=== PATIENT | female | born 1975 | race Caucasian/White ===

== ENCOUNTER 2016-10-16 14:39 | Inpatient (IN) | payer OTHER ==
[~2016-10-16] VITALS: Ht 168.9 cm; Wt 88.0 kg
[2016-10-21] MEDS: OXYTOCIN 30U/ 0.9% NaCL 500ML 500 ML IV SCH ×4 (10:49→23:23)
[2016-10-21] MEDS: LACTATED RINGERS 1,000 ML IV SCH ×5 (10:54→23:23)
[2016-10-21] MEDS ORDERED: EPHEDRINE 50 MG/ML, 1ML IVPush PRN (11:00)
[2016-10-21] MEDS ORDERED: LABETALOL 5MG/ML, 20ML IV PRN (11:00)
[2016-10-21] MEDS ORDERED: HYDROmorphone 1 MG/ML, 1ML IV PRN (11:00)
[2016-10-21] MEDS ORDERED: PROMETHAZINE 25 MG/ML, 1ML IV PRN (11:00)
[2016-10-21] MEDS ORDERED: LACTATED RINGERS 1,000 ML IVBOLUS ONE (11:00)
[2016-10-21] MEDS ORDERED: METOCLOPRAMIDE 5 MG/ML, 2ML IV ONE (11:00)
[2016-10-21] MEDS ORDERED: OXYcodone 5 MG/5 ML ORAL.SOL UDC PO PRN (11:00)
[2016-10-21] MEDS ORDERED: MEPERIDINE/PF 25MG/0.5ML IVPush PRN (11:00)
[2016-10-21] MEDS ORDERED: ONDANSETRON 2MG/ML, 2ML IVPush PRN (11:00)
[2016-10-21] MEDS ORDERED: HYDROcodone/APAP 7.5-325MG/15ML UDC PO PRN (11:00)
[2016-10-21] MEDS ORDERED: ALBUTEROL SULFATE 2.5 MG/3 ML NPPB PRN (11:00)
[2016-10-21] MEDS ORDERED: hydrALAzine 20 MG/ML, 1ML IV PRN (11:00)
[2016-10-21] MEDS ORDERED: SODIUM CITRATE/CITRIC ACID 30 ML UDC PO ONE (11:00)
[2016-10-21] MEDS ORDERED: MIDAZOLAM 1 MG/ML, 2ML IV PRN (11:00)
[2016-10-21] MEDS ORDERED: FENTANYL PF 100 MCG/2ML IV PRN (11:00)
[2016-10-21] MEDS: PLEASE ENTER HEIGHT AND WEIGHT MC SCH ×2 (11:30→19:30)
[2016-10-21] MEDS ORDERED: SODIUM CITRATE/CITRIC ACID 30 ML UDC ONE ×2 (11:42→12:10)
[2016-10-21] MEDS ORDERED: OXYTOCIN 30U/ 0.9% NaCL 500ML 500 ML ONE (11:42)
[2016-10-21] MEDS ORDERED: MISOPROSTOL 200 MCG TABLET ONE (11:42)
[2016-10-21] MEDS ORDERED: METOCLOPRAMIDE 5 MG/ML, 2ML ONE ×2 (11:42→12:10)
[2016-10-21 12:06] LABS: ASPARTATE AMINO TRANSFERASE 46 U/L (15-37); BLOOD UREA NITROGEN 13 mg/dL (7-18)
[2016-10-21] MEDS ORDERED: FENTANYL PF 100 MCG/2ML ONE (12:07)
[2016-10-21] MEDS ORDERED: OXYTOCIN 10 UNITS/ML, 1ML ONE (12:10)
[2016-10-21] MEDS ORDERED: KETOROLAC 30 MG/1 ML ONE (12:10)
[2016-10-21] MEDS ORDERED: DEXAMETHASONE 4 MG/ML, 1ML ONE (12:10)
[2016-10-21] MEDS ORDERED: ONDANSETRON 2MG/ML, 2ML ONE (12:10)
[2016-10-21] MEDS ORDERED: CEFAZOLIN 1,000 MG ONE (12:10)
[2016-10-21] MEDS ORDERED: NEWBORN KIT ONE (12:12)
[2016-10-21] MEDS ORDERED: MAGNESIUM SULFATE PMX 4GM/100M 100 ML IV ONE ×3 (13:30→14:00)
[2016-10-21] MEDS ORDERED: MISOPROSTOL 200 MCG TABLET PR PRN (13:30)
[2016-10-21] MEDS ORDERED: ACETAMINOPHEN 325 MG TABLET PO PRN (13:30)
[2016-10-21] MEDS ORDERED: ONDANSETRON 2MG/ML, 2ML IV PRN (13:30)
[2016-10-21] MEDS ORDERED: morphine SULFATE 10 MG/ML, 1ML IVPush PRN (13:30)
[2016-10-21] MEDS ORDERED: CARBOPROST TROMETHAMINE 250 MCG/ML, 1ML IM PRN (13:30)
[2016-10-21] MEDS ORDERED: IBUPROFEN 600 MG TABLET PO PRN (13:30)
[2016-10-21] MEDS ORDERED: MAGNESIUM SULFATE PMX 4GM/100M 100 ML ONE (13:32)
[2016-10-21] MEDS ORDERED: MAGNESIUM SULF. PMX 20GM/500ML 500 ML IV ONE ×2 (13:33→23:46)
[2016-10-21] MEDS ORDERED: MAGNESIUM SULFATE PMX 4GM/100M 100 ML IV SCH (13:36)
[2016-10-21] MEDS: MAGNESIUM SULF. PMX 20GM/500ML 500 ML IV PRN ×2 (14:16→23:50)
[2016-10-21] MEDS ORDERED: morphine SULFATE 10 MG/ML, 1ML ONE ×2 (15:15→23:40)
[2016-10-21] MEDS: morphine SULFATE 10 MG/ML, 1ML IVPush PRN ×2 (15:17→15:28)
[2016-10-21] MEDS ORDERED: OXYcodone/APAP 5/325MG TABLET ONE ×2 (16:35→20:10)
[2016-10-21] MEDS: OXYcodone/APAP 5/325MG TABLET PO PRN ×2 (16:39→20:12)
[2016-10-21 19:25] VITALS: BP 141/77
[2016-10-21 22:35] LABS: ASPARTATE AMINO TRANSFERASE 46 U/L (15-37); BLOOD UREA NITROGEN 11 mg/dL (7-18)
[2016-10-21 22:49] LABS: DIFF TOTAL CELLS COUNTED 100 CELL DIFF
[2016-10-21 22:59] LABS: ANISOCYTOSIS 1+; VERIFY COUNTS? YES
[2016-10-21 23:01] LABS: POLYCHROMASIA 1+
[2016-10-21 23:02] LABS: LARGE PLATELETS 1+
[2016-10-22] MEDS: LACTATED RINGERS 1,000 ML IV SCH ×8 (02:49→21:23)
[2016-10-22] MEDS: PLEASE ENTER HEIGHT AND WEIGHT MC SCH (03:30)
[2016-10-22] MEDS ORDERED: OXYcodone/APAP 5/325MG TABLET ONE ×2 (05:11→11:31)
[2016-10-22] MEDS: OXYcodone/APAP 5/325MG TABLET PO PRN ×4 (05:13→21:06)
[2016-10-22 05:41] LABS: ASPARTATE AMINO TRANSFERASE 38 U/L (15-37); BLOOD UREA NITROGEN 12 mg/dL (7-18)
[2016-10-22 06:10] LABS: DIFF TOTAL CELLS COUNTED 100 CELL DIFF
[2016-10-22] MEDS: ENOXAPARIN 40 MG/0.4 ML SQ SCH (06:10)
[2016-10-22 06:12] LABS: VERIFY COUNTS? YES
[2016-10-22 06:13] LABS: ANISOCYTOSIS 1+; LARGE PLATELETS 1+; POLYCHROMASIA 1+
[2016-10-22] MEDS: OXYTOCIN 30U/ 0.9% NaCL 500ML 500 ML IV SCH ×3 (06:49→19:23)
[2016-10-22 08:10] VITALS: BP 150/78
[2016-10-22] MEDS: PRENATAL VIT/IRON/FA 1 EACH TABLET PO SCH (09:00)
[2016-10-22] MEDS: MAGNESIUM SULF. PMX 20GM/500ML 500 ML IV PRN (10:09)
[2016-10-22 12:56] VITALS: BP 125/74
[2016-10-22] MEDS: morphine SULFATE 10 MG/ML, 1ML IVPush PRN ×3 (13:56→15:52)
[2016-10-22 18:00] VITALS: BP 128/72
[2016-10-22] MEDS: SIMETHICONE 80 MG CHEW TAB PO PRN (21:07)
[2016-10-22 23:44] VITALS: BP 114/61
[2016-10-23] MEDS: OXYcodone/APAP 5/325MG TABLET PO PRN ×6 (01:00→22:20)
[2016-10-23] MEDS: SIMETHICONE 80 MG CHEW TAB PO PRN ×4 (01:00→22:20)
[2016-10-23 03:53] VITALS: BP 125/69
[2016-10-23] MEDS: OXYTOCIN 30U/ 0.9% NaCL 500ML 500 ML IV SCH ×2 (05:23→15:23)
[2016-10-23] MEDS: LACTATED RINGERS 1,000 ML IV SCH ×5 (05:23→21:23)
[2016-10-23 08:01] VITALS: BP 125/72
[2016-10-23] MEDS: PRENATAL VIT/IRON/FA 1 EACH TABLET PO SCH (09:12)
[2016-10-23] MEDS: ENOXAPARIN 40 MG/0.4 ML SQ SCH (09:12)
[2016-10-23 20:03] VITALS: BP 142/82
[2016-10-23 23:33] VITALS: BP 133/81
[2016-10-24] MEDS: LACTATED RINGERS 1,000 ML IV SCH ×3 (01:23→11:23)
[2016-10-24] MEDS: OXYTOCIN 30U/ 0.9% NaCL 500ML 500 ML IV SCH ×2 (01:23→11:23)
[2016-10-24] MEDS: OXYcodone/APAP 5/325MG TABLET PO PRN ×3 (02:13→11:06)
[2016-10-24 03:38] VITALS: BP 162/82
[2016-10-24] MEDS: ENOXAPARIN 40 MG/0.4 ML SQ SCH (06:02)
[2016-10-24] MEDS: SIMETHICONE 80 MG CHEW TAB PO PRN (06:31)
[2016-10-24 07:30] VITALS: BP 140/78
[2016-10-24] MEDS: PRENATAL VIT/IRON/FA 1 EACH TABLET PO SCH (09:43)
[2016-10-24] MEDS ORDERED: IBUP-1222 PO (12:09)
[2016-10-24] MEDS ORDERED: OXYC-302 PO (12:09)
[2016-10-24] MEDS ORDERED: SENN8.6T4 PO (12:10)
[2016-10-24] MEDS ORDERED: ENOX40SY4 SQ (12:12)
[2016-10-24 12:20] VITALS: BP 150/86
== END 2016-10-24 13:59 | disposition home or self-care (01) | DRG 766 ==
LOC: LDIP 10-21 10:01 → 2NE 10-21 15:47 → 2NW 10-22 12:54
PROVIDERS: ADMIT Obstetrics & Gynecology; ATTEND Obstetrics & Gynecology
PROC: 10D00Z1 Extraction of Products of Conception, Low, Open Approach (ICD-10-PCS; principal; 2016-10-21)
DX: O32.1XX0 Maternal care for breech presentation, not applicable or unspecified (principal); Z37.0 Single live birth; O99.824 Streptococcus B carrier state complicating childbirth; O14.04 Mild to moderate pre-eclampsia, complicating childbirth; O34.13 Maternal care for benign tumor of corpus uteri, third trimester; D25.2 Subserosal leiomyoma of uterus; Z86.718 Personal history of other venous thrombosis and embolism; Z88.0 Allergy status to penicillin; Z88.1 Allergy status to other antibiotic agents; Z3A.39 39 weeks gestation of pregnancy; Z23 Encounter for immunization
CPT/HCPCS: 36415; 80053; 82803; 83735; 84550; 85025; 85610; 85730; 86850; 86900; J0690; J1100; J1650; J1885; J2405; J3010; J2270; J2590; J2765; J3475; J7120

== ENCOUNTER 2016-10-19 20:36 | Emergency (ER) | payer OTHER ==
[~2016-10-19] VITALS: Ht 167.6 cm; Wt 88.2 kg
[2016-10-19 20:36] VITALS: BP 161/95
[2016-10-19] MEDS ORDERED: BUPIVACAINE/PF 0.5% ONE (21:03)
[2016-10-19] MEDS ORDERED: BUPIVACAINE/PF 0.5% INFIL ONE (21:30)
[2016-10-19] MEDS ORDERED: ACETAMINOPHEN 325 MG TABLET ONE (22:14)
[2016-10-19] MEDS ORDERED: ACETAMINOPHEN 325 MG TABLET PO ONE (22:30)
== END 2016-10-19 22:27 | disposition home or self-care (01) ==
LOC: ED 22:00
DX: O26.893 Other specified pregnancy related conditions, third trimester (principal); K08.89 Other specified disorders of teeth and supporting structures; Z3A.39 39 weeks gestation of pregnancy; Z86.718 Personal history of other venous thrombosis and embolism; Z88.0 Allergy status to penicillin
CPT/HCPCS: 64400; 99284; J3490

== ENCOUNTER 2017-01-17 08:33 | Emergency (ER) | payer OTHER ==
[~2017-01-17] VITALS: Ht 167.6 cm; Wt 73.0 kg
[~2017-01-17 08:33] MED LIST: ENOX40SY4 SQ; IBUP-1222 PO; OXYC-302 PO; SENN8.6T4 PO
[2017-01-17] MEDS ORDERED: SODIUM CHLORIDE FLUSH 10ML SYR IVF ONE (09:30)
[2017-01-17 09:42] LABS: PATH.CAST-FLAG NOT PRESENT; SPERM-FLAG NOT PRESENT; SRC-FLAG NOT PRESENT; XTAL-FLAG NOT PRESENT; YLC-FLAG NOT PRESENT
[2017-01-17 10:04] LABS: ASPARTATE AMINO TRANSFERASE 25 U/L (15-37); BLOOD UREA NITROGEN 10 mg/dL (7-18)
[2017-01-17 12:43] VITALS: BP 101/65
== END 2017-01-17 13:23 | disposition home or self-care (01) ==
LOC: ED 09:16
DX: R19.7 Diarrhea, unspecified (principal); Z86.718 Personal history of other venous thrombosis and embolism
CPT/HCPCS: 36415; 80053; 81001; 83605; 83690; 85025; 87086; 87324; 87493; 99284

== ENCOUNTER 2017-01-29 01:07 | Emergency (ER) | payer OTHER ==
[~2017-01-29] VITALS: Ht 167.6 cm; Wt 74.3 kg
[2017-01-29] MEDS ORDERED: SODIUM CHLORIDE FLUSH 10ML SYR IVF ONE (02:00)
[2017-01-29] MEDS ORDERED: SODIUM CHLORIDE 0.9% 1,000ML IVBOLUS ONE (02:00)
[2017-01-29 02:40] LABS: ASPARTATE AMINO TRANSFERASE 28 U/L (15-37); BLOOD UREA NITROGEN 11 mg/dL (7-18)
[2017-01-29 04:38] VITALS: BP 114/68
== END 2017-01-29 04:40 | disposition home or self-care (01) ==
LOC: ED 02:30
DX: R19.7 Diarrhea, unspecified (principal); M54.5 Low back pain; R68.83 Chills (without fever)
CPT/HCPCS: 36415; 80053; 81003; 84703; 85025; 87324; 89055; 99284

== ENCOUNTER → 2019-04-26 | Outpatient (CLI) | payer OTHER ==
[~2019-04-26] MED LIST changes: +MELO7.5T31 PO; +SENN-88 PO; -SENN8.6T4 PO
== END | disposition home or self-care (01) ==
LOC: CFH 08:45
PROVIDERS: ATTEND Nurse Practitioner Obstetrics & Gynecology
DX: R92.8 Other abnormal and inconclusive findings on diagnostic imaging of breast (principal); Z12.39 Encounter for other screening for malignant neoplasm of breast
CPT/HCPCS: 76641